=== PATIENT | female | born 1995 | race Caucasian/White ===

== ENCOUNTER 2021-11-20 04:57 | Emergency (ER) | payer MEDICAID ==
[~2021-11-20] VITALS: Ht 167.6 cm; Wt 73.0 kg
[2021-11-20] MEDS ORDERED: MORPHINE SULFATE 4 MG/ML CPJ (NOT FOR IM USE) IV STA (06:22)
[2021-11-20] MEDS ORDERED: ONDANSETRON HCL 4MG/2ML INJ IV STA (06:22)
[2021-11-20] MEDS ORDERED: SODIUM CHLORIDE 0.9% 1,000 ML IV ONE (06:30)
[2021-11-20 06:47] LABS: BASOPHILS % 0.2 % (0.0-2.0); EOSINOPHILS % 0.4 % (0.0-5.0); HEMATOCRIT. 39.6 % (36.0-48.0); HEMOGLOBIN. 13.7 g/dL (12.0-16.0); LYMPHOCYTES % 14.1 % (20.0-50.0); MEAN CORPUSCULAR HEMOGLOBIN 30.7 pg (28.0-32.0); MEAN CORPUSCULAR VOLUME 88.6 fL (81.0-99.0); MEAN PLATELET VOLUME 6.8 fl (7.4-10.4); MONOCYTES % 4.6 % (2.0-8.0); NEUTROPHILS % 80.7 % (40.0-76.0); PLATELET 333 x1000/uL (130-400); RED BLOOD CELL COUNT 4.47 mill/uL (4.2-5.4); RED CELL DISTRIBUTION WIDTH 12.8 % (11.6-14.6)
[2021-11-20 06:53] LABS: CHLORIDE 109 mEq/L (98-107)
[2021-11-20 07:02] LABS: B-HCG QUANTITATIVE < 1 mIU/mL (<3)
[2021-11-20 07:27] LABS: CLARITY URINE CLOUDY (CLEAR); COLOR URINE DARK YELLOW (YELLOW); KETONES URINE 3+ (NEGATIVE); LEUKOCYTE ESTERASE URINE 1+ (NEGATIVE); NITRITE URINE NEGATIVE (NEGATIVE); OCCULT BLOOD URINE NEGATIVE (NEGATIVE); PROTEIN URINE 1+ (NEGATIVE); SPECIFIC GRAVITY URINE 1.035 (1.005-1.030)
[2021-11-20] MEDS ORDERED: HYDR-4001 MT (08:28)
[2021-11-20] MEDS ORDERED: IBUP-2029 MT (08:28)
[2021-11-20] MEDS ORDERED: HYDROCODONE/ACETAMINOPHEN 5/325MG TABLET PO ONE (08:45)
[2021-11-20] MEDS ORDERED: HYDROMORPHONE HCL/PF 2MG/ML CPJ IV ONE (09:30)
[2021-11-20] MEDS ORDERED: ONDANSETRON HCL 4MG/2ML INJ IV ONE (09:30)
[2021-11-20] MEDS ORDERED: IOHEXOL-300 100 ML BOTTLE ONE (11:21)
[2021-11-20 12:00] VITALS: BP 110/67
[2021-11-20] MEDS ORDERED: PROT40 MT (13:30)
== END 2021-11-20 14:37 | disposition home or self-care (01) ==
LOC: ER 05:24
DX: R10.32 Left lower quadrant pain (principal); R19.00 Intra-abdominal and pelvic swelling, mass and lump, unspecified site; N83.202 Unspecified ovarian cyst, left side; N83.201 Unspecified ovarian cyst, right side
CPT/HCPCS: 36415; 74177; 76830; 76856; 80053; 81003; 83690; 84702; 85025; 86850; 86900; 86901; 96361; 96374; 96375; 96376; 99285; J1170; J2270; J2405; J7030; Q9967